=== PATIENT | female | born 1955 | race Caucasian/White ===

== ENCOUNTER → 2024-06-04 14:11 | Outpatient (CLI) | payer MEDICARE, SELFPAY ==
--- NOTE | 2024-06-04 14:13 | DI.CT.S_ITS ---
PROCEDURE: CT ABDOMEN PELVIS W CON INDICATIONS: ABD PAIN//TRENT/DISTENDED ABD/ASCITES TECHNIQUE: After the administration of intravenous contrast, axial sections acquired from the lung bases to the pubic symphysis. Coronal and sagittal reformats were performed. For radiation dose reduction, the following was used: automated exposure control, adjustment of mA and/or kV according to patient size. COMPARISON: None. FINDINGS: Image quality: Diagnostic. Lower Chest: There are incidentally noted bilateral lower lobe pulmonary emboli. There is no evidence of right heart strain. The pulmonary tree is incompletely evaluated. There is a mild right pleural effusion with associated right basilar atelectasis. ABDOMEN: Liver: No solid mass. Gallbladder: No radiopaque gallstones or wall thickening. Biliary ducts: No biliary dilation. Pancreas: No ductal dilation. Spleen: Size is within normal limits. Adrenal Glands: No adrenal nodules. Kidneys and Ureters: No hydronephrosis. No solid mass. No complex renal cystic lesion which requires follow up. Stomach and Bowel: Normal colonic caliber, without significant wall thickening. Peritoneum: There is moderately large ascites. There is clear evidence of malignancy in the pelvis. This may potentially represent bilateral cystic ovarian neoplasms. On the right, there is what appears to be a cystic mass with a significant solid component. On image 106 of series 2, the solid component measures the 6.3 x 7.7 cm, and the total potential ovarian lesion measures approximately 9.9 x 14.2 cm. There is also potential cystic ovarian neoplasm of the left ovary which has a significant solid component and a cystic component, and is seen on image 122 of series 2. In this location, the overall lesion measures approximately 8.4 x 8.7 cm with a solid component measuring approximately 7.1 x 6.6 cm. This lesion since on top of the uterus. Ventral Wall: No significant ventral hernia. Abdominal Nodes: No retroperitoneal or mesenteric adenopathy by size criteria. Vessels: Aorta and inferior vena cava are normal in size. PELVIS: Pelvic Organs: Unremarkable. Bladder: No bladder wall thickening, accounting for underdistention. Pelvic Nodes: No enlarged lymph nodes. Miscellaneous: No inguinal hernias are seen. Bones: No aggressive osseous abnormality. IMPRESSION: 1. 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 There is associated moderately large ascites. 2. Bilateral basilar pulmonary emboli are noted as incidental findings on this examination. 3. Small right pleural effusion with minimal right basilar atelectasis. Comment: The study was initially evaluated approximately 13 minutes after was completed. I immediately called the assistive technology trainer to see whether the patient had left the facility. The patient was still in the radiology department, and was undergoing ultrasound examination. The assistive technology trainer was instructed that the patient should be sent to the emergency department. I subsequently spoke to on 06/04/2024 at 1524 hours, discussing this patient, who has unsuspected pulmonary emboli and significant malignancy in the abdomen and pelvis. Dictated by: Patrick Gould M.D. on 06/04/2024 at 15:23 Approved by: Patrick Gould M.D. on 06/04/2024 at 15:35
--- NOTE | 2024-06-04 14:13 | DI.US.S_ITS ---
PROCEDURE: US ABDOMEN COMPLETE INDICATIONS: ABDOMINAL PAIN AND ASCITES TECHNIQUE: Real-time scanning was performed of the abdominal and retroperitoneal organs, with image documentation. COMPARISON: [facility], CT, CT ABDOMEN PELVIS W CON, 06/04/2024, 15:11. FINDINGS: Liver: Liver is normal in size and homogeneous in echotexture. Gallbladder: Normal. Biliary ducts: Intrahepatic bile ducts are non-dilated. Extrahepatic bile duct not well visualized. Pancreas: Visualized portions of the pancreas are sonographically normal. Spleen: Spleen is normal in size and homogeneous in echotexture. Kidneys: Kidneys are normal in size and echotexture. Right kidney measures 10.5 cm long; left kidney measures 9.7 cm long. No hydronephrosis or nephrolithiasis. No solid masses. Aorta: Visualized aorta is normal in caliber at less than 3 cm. Iliacs: Proximal common iliac arteries are normal in caliber at less than 2.5 cm. IVC: Intrahepatic inferior vena cava is patent. Miscellaneous: Large volume ascites. Partially visualized mixed cystic and solid mass of the right ovary is again seen. IMPRESSION: Large right mixed cystic and solid mass of the right ovary, consistent neoplasm. Large volume ascites, likely due to malignancy. Dictated by: Pankaj Spence M.D. on 06/04/2024 at 15:43 Approved by: Pankaj Spence M.D. on 06/04/2024 at 15:45
== END ==
PROVIDERS: PCP Family Medicine; Referring Provider Family Medicine; Visit Provider Family Medicine
DX: R10.84 Generalized abdominal pain (principal); R06.02 Shortness of breath; R06.09 Other forms of dyspnea; R14.0 Abdominal distension (gaseous); J90 Pleural effusion, not elsewhere classified; Z86.2 Personal history of diseases of the blood and blood-forming organs and certain disorders involving the immune mechanism; R18.8 Other ascites; R63.0 Anorexia; I26.99 Other pulmonary embolism without acute cor pulmonale; J98.11 Atelectasis; N83.8 Other noninflammatory disorders of ovary, fallopian tube and broad ligament
CPT/HCPCS: 74177; 76700; Q9967

== ENCOUNTER 2024-06-04 15:54 | Emergency (ER) | payer MEDICARE, SELFPAY ==
[2024-06-04] VITALS (16 sets, daily range): BP systolic 114–169; BP diastolic 75–102; PULSE 103–122; RESP 11–28; TEMP 36.4; O2SAT 93–95; BMI 32.3
--- NOTE | 2024-06-04 16:07 | EKG_ITS ---
[address] [address] Test Date: 2024-06-04 Pat Name: Cristy Zamora Department: Room: Gender: Female Certified Driver Examiner: ELI : [id number] Requested By: Order Number: [id number] Reading MD: Ward Solano Measurements Intervals [place] Rate: 120 P: 42 MD: 142 QRS: -3 QRSD: 72 T: 53 QT: 328 QTc: 463 Interpretive Statements Sinus tachycardia Electronically Signed On 06-05-2024 18:29:23 PDT by Ward Solano
[2024-06-04] MEDS: ASPIRIN 81 MG CHEW TAB 324 MG PO (16:38)
[2024-06-04 16:39] LABS: INR 1.1 (0.9-1.3); Prothrombin Time 12.1 SECONDS (9.4-12.5)
[2024-06-04 16:42] LABS: PTT Partial Thromboplastin Tim 30 SECONDS (25.1-36.5)
[2024-06-04 16:46] LABS: Add Manual Diff / Slide Review NO; Basophils Absolute Auto 0 /uL (0-100); Basophils Percent Auto 0.4 % (0-2); Eosinophils Absolute Auto 0 /uL (0-450); Eosinophils Percent Auto 0.4 % (2-4); Hemoglobin 13.5 g/dL (12.0-16.0); Lymphocytes Absolute Auto 1300 /uL (1100-4500); Lymphocytes Percent Auto 16.4 % (25-40); Mean Corpuscular HGB Conc 33.8 % (30-36); Mean Corpuscular Hemoglobin 30.5 PG (26-34); Mean Corpuscular Volume 90.3 fL (80-100); Monocytes Absolute Auto 600 /uL (0-900); Monocytes Percent Auto 7.9 % (3-14); Neutrophils Absolute Auto 5900 /uL (1500-7000); Neutrophils Percent Auto 74.9 % (50-75); Platelet Count 306 X10^3/uL (150-400); Red Blood Cell Count 4.43 X10^6/uL (4.0-5.2); Red Cell Distribution Width 12.8 % (11.6-14.8); White Blood Cell Count 7.8 X10^3/uL (4.5-11.0)
[2024-06-04 16:48] LABS: Alanine Aminotransferase 25 IU/L (<35); Albumin 3.6 g/dL (3.5-5.0); Albumin Globulin Ratio 1.1 (1.0-2.8); Alkaline Phosphatase 85 U/L (38-126); Aspartate Aminotransferase 42 IU/L (14-36); BUN Creatinine Ratio 9.1 (6-22); Bilirubin Total 0.4 mg/dL (0.2-1.3); Blood Urea Nitrogen 6 mg/dL (7-17); Calcium 8.7 mg/dL (8.4-10.2); Carbon Dioxide 24 mmol/L (22-32); Chloride 100 mmol/L (98-107); Creatine Kinase 39 U/L (30-135); Estimated Glomerular Filt Rate > 60 mL/min (>60); Globulin 3.4 g/dL (1.7-4.1); Glucose 114 mg/dL (80-110); HEMOLYSIS < 15 (0-50); Lipase 105 U/L (23-300); Magnesium 1.9 mg/dL (1.6-2.3); Potassium 3.7 mmol/L (3.4-5.1); Sodium 132 mmol/L (137-145)
[2024-06-04 16:59] LABS: NT-proBNP (BNP-Adult 18+) 167 pg/mL (<125); Troponin I < 0.012 ng/mL (0.01-0.034)
--- NOTE | 2024-06-04 17:05 | DI.CT.S_ITS ---
PROCEDURE: CT ANGIO CHEST PE PROTOCOL INDICATIONS: Pe TECHNIQUE: After the administration of intravenous contrast, 2 mm thick sections acquired from the pulmonary apices to the posterior costophrenic angles. 3-dimensional maximum intensity projection (MIP) coronal and sagittal reformats were then acquired through the thorax. For radiation dose reduction, the following was used: automated exposure control, adjustment of mA and/or kV according to patient size. COMPARISON: None. FINDINGS: Image quality: Diagnostic. Pulmonary arteries: Pulmonary arteries are prominent in size. Intraluminal filling defects are seen in right and left main pulmonary arteries extending to segmental and subsegmental branches of bilateral upper and lower lobe pulmonary arteries as well as right middle lobe pulmonary artery consistent with extensive bilateral pulmonary emboli. Lower Neck: No enlarged lymph nodes. Thyroid: No thyroid nodules which require sonographic follow up, per consensus guidelines. Axillae: No enlarged lymph nodes. Chest Wall: Unremarkable. Bones: No aggressive appearing bony lesions. Lungs and Pleura: There is small to moderate right-sided pleural effusion. Compressive atelectasis in posterior aspect of right lung is seen. Mild left basilar dependent atelectasis is seen. No pneumothorax. No suspicious pulmonary nodule or mass. Central and peripheral airway is patent. Heart: Heart size is borderline enlarged. No pericardial effusion. No signs of right heart strain at this time. Thoracic Vessels: No aortic aneurysm. Mediastinum and Anna: No enlarged lymph nodes. Esophagus: No wall thickening. Small hiatal hernia. Upper Abdomen: Please correlate with CT of abdomen and pelvis findings from the same day. IMPRESSION: 1. Extensive pulmonary emboli in distal right and left main pulmonary arteries extending to segmental and subsegmental branches of bilateral pulmonary arteries as above. Prominent size of main pulmonary artery which can be seen associated with pulmonary vascular hypertension. 2. Borderline cardiomegaly, no pericardial effusion. No definite evidence of right heart strain at this time. No gross mediastinal or hilar lymphadenopathy. 3. Small to moderate right pleural effusion with compressive atelectasis in posterior aspect of right lower lobe. Dependent atelectasis also seen in left lung base. No pneumothorax. 4. Small hiatal hernia. 5. Please correlate with CT of abdomen and pelvis report for additional findings. Dictated by: Chandrakant English M.D. on 06/04/2024 at 17:34 Approved by: Chandrakant English M.D. on 06/04/2024 at 17:38
[2024-06-04 17:50] LABS: Cancer Antigen 125 927 U/mL (0-35); Carcinoembryonic Antigen 0.9 ng/mL (0.1-3.0)
--- NOTE | 2024-06-04 17:54 | ED.SOB ---
HPI - SOB/Dyspnea <Lelia Diamond DO - Last Filed: 06/05/24 23:05> General Chief Complaint: Shortness of Breath/Dyspnea Stated Complaint: Had US&CT told there's a small blood clot in lung Time Seen by Provider: 06/04/24 17:05 Source: patient and family Mode of arrival: Ambulatory Limitations: no limitations History of Present Illness HPI Narrative: Patient is a healthy 69-year-old female presenting today from diagnostic imaging. She had outpatient CT abdomen and ultrasound done. She has been having some abdominal issues feeling a little bit more bloated does not really want aware her pants anymore has they do not fit quite right. She has also had increasing shortness of breath with exertion for the last number of weeks. No significant fever she sometimes has a nonproductive cough but no all the time. No nausea or vomiting. She was decrease in appetite she is having regular bowel movements no significant nausea or vomiting. CT abdomen found a very large ovarian mass with pulmonary emboli Related Data Allergies Allergy/AdvReac Type Severity Reaction Status Date / Time No Known Drug Allergies Allergy Verified 06/04/24 16:20 Patient History <Lelia Diamond DO - Last Filed: 06/05/24 23:05> Social History Smoking Status: Never smoker Smoking Status: Never smoker Alcohol type: wine Exam <Lelia Diamond DO - Last Filed: 06/05/24 23:05> Initial Vital Signs Initial Vital Signs: Vital Signs Temperature 97.6 F 06/04/24 16:10 Pulse Rate 119 H 06/04/24 16:10 Respiratory Rate 24 06/04/24 16:10 Blood Pressure 169/93 H 06/04/24 16:10 Pulse Oximetry 94 06/04/24 16:10 Oxygen Delivery Method Room Air 06/04/24 16:10 GENERAL: Alert very pleasant 69-year-old female and in no acute distress. HEENT: Head atraumatic,EOMI, pupils reactive, face symmetric, moist mucous membranes CARDIOVASCULAR: Tachycardic regular RESPIRATORY: Breath sounds equal bilaterally, no wheezes rales or rhonchi. ABDOMEN: Soft, no significant distention no pain EXTREMITIES: Normal range of motion, no clubbing or edema. Neurovascularly intact NEUROLOGICAL: Alert and oriented x4.Normal gait and speech. Cranial nerves II through XII grossly intact. SKIN: Warm, dry, no laceration, no petechiae, no rashes or lesions. <Ward Ritchie DO - Last Filed: 06/04/24 21:02> Initial Vital Signs Initial Vital Signs: Vital Signs Temperature 97.6 F 06/04/24 16:10 Pulse Rate 119 H 06/04/24 16:10 Respiratory Rate 24 06/04/24 16:10 Blood Pressure 169/93 H 06/04/24 16:10 Pulse Oximetry 94 06/04/24 16:10 Oxygen Delivery Method Room Air 06/04/24 16:10 Course <Lelia Diamond, DO - Last Filed: 06/05/24 23:05> Orders Ordered: Discontinued Medications Aspirin (Aspirin 81 Mg Chew Tab) 324 mg PO NOW ONE Stop: 06/04/24 16:28 Last Admin: 06/04/24 16:38 Dose: 324 mg Documented By: BENTLEY Heparin Sodium (Porcine) (Heparin 5,000 Unit/Ml Vial) 6,500 unit 80 unit/kg (6500 unit) IV NOW ONE Stop: 06/04/24 17:55 Last Admin: 06/04/24 18:16 Dose: 6,500 unit Documented By: BENTLEY Heparin Sodium/Dextrose (Heparin Drip) 25,000 unit in 500 mls @ 28.903 mls/hr IV CONT BRIAN; Protocol Last Admin: 06/04/24 18:17 Dose: 18 units/kg/hr, 28.903 mls/hr Documented By: BENTLEY Co-signed By: CTS Vital Signs Vital signs: Vital Signs - 8 hr 06/04/24 16:10 06/04/24 16:11 06/04/24 16:11 Temperature 97.6 F Pulse Rate 119 H 122 H Respiratory Rate 24 Blood Pressure 169/93 H 169/93 H Pulse Oximetry 94 95 Oxygen Delivery Method Room Air 06/04/24 16:30 06/04/24 16:30 06/04/24 17:00 Temperature Pulse Rate 113 H Respiratory Rate 14 Blood Pressure 147/82 H 114/80 Pulse Oximetry 95 Oxygen Delivery Method Room Air 06/04/24 17:00 06/04/24 17:26 06/04/24 17:26 Temperature Pulse Rate 108 H 107 H Respiratory Rate 13 16 Blood Pressure 149/80 H Pulse Oximetry 94 93 Oxygen Delivery Method Room Air 06/04/24 17:30 06/04/24 17:30 06/04/24 18:00 Temperature Pulse Rate 111 H 109 H Respiratory Rate 28 H 15 Blood Pressure 138/75 Pulse Oximetry 93 94 Oxygen Delivery Method 06/04/24 18:30 06/04/24 18:30 06/04/24 19:00 Temperature Pulse Rate 107 H 110 H Respiratory Rate 11 L 24 Blood Pressure 142/86 H Pulse Oximetry 94 95 Oxygen Delivery Method Room Air 06/04/24 19:00 06/04/24 19:30 06/04/24 19:30 Temperature Pulse Rate 105 H Respiratory Rate 27 H Blood Pressure 143/85 H 142/82 H Pulse Oximetry 94 Oxygen Delivery Method 06/04/24 20:00 06/04/24 20:00 06/04/24 20:30 Temperature Pulse Rate 105 H 103 H Respiratory Rate 14 20 Blood Pressure 150/79 H Pulse Oximetry 95 95 Oxygen Delivery Method 06/04/24 20:30 Temperature Pulse Rate Respiratory Rate Blood Pressure 137/78 Pulse Oximetry Oxygen Delivery Method <Ward Ritchie, - Last Filed: 06/04/24 21:02> Orders Ordered: Discontinued Medications Aspirin (Aspirin 81 Mg Chew Tab) 324 mg PO NOW ONE Stop: 06/04/24 16:28 Last Admin: 06/04/24 16:38 Dose: 324 mg Documented By: BENTLEY Heparin Sodium (Porcine) (Heparin 5,000 Unit/Ml Vial) 6,500 unit 80 unit/kg (6500 unit) IV NOW ONE Stop: 06/04/24 17:55 Last Admin: 06/04/24 18:16 Dose: 6,500 unit Documented By: BENTLEY Heparin Sodium/Dextrose (Heparin Drip) 25,000 unit in 500 mls @ 28.903 mls/hr IV CONT BRIAN; Protocol Last Admin: 06/04/24 18:17 Dose: 18 units/kg/hr, 28.903 mls/hr Documented By: BENTLEY Co-signed By: TOM Vital Signs Vital signs: Vital Signs - 8 hr 06/04/24 16:10 06/04/24 16:11 06/04/24 16:11 Temperature 97.6 F Pulse Rate 119 H 122 H Respiratory Rate 24 Blood Pressure 169/93 H 169/93 H Pulse Oximetry 94 95 Oxygen Delivery Method Room Air 06/04/24 16:30 06/04/24 16:30 06/04/24 17:00 Temperature Pulse Rate 113 H Respiratory Rate 14 Blood Pressure 147/82 H 114/80 Pulse Oximetry 95 Oxygen Delivery Method Room Air 06/04/24 17:00 06/04/24 17:26 06/04/24 17:26 Temperature Pulse Rate 108 H 107 H Respiratory Rate 13 16 Blood Pressure 149/80 H Pulse Oximetry 94 93 Oxygen Delivery Method Room Air 06/04/24 17:30 06/04/24 17:30 06/04/24 18:00 Temperature Pulse Rate 111 H 109 H Respiratory Rate 28 H 15 Blood Pressure 138/75 Pulse Oximetry 93 94 Oxygen Delivery Method 06/04/24 18:30 06/04/24 18:30 06/04/24 19:00 Temperature Pulse Rate 107 H 110 H Respiratory Rate 11 L 24 Blood Pressure 142/86 H Pulse Oximetry 94 95 Oxygen Delivery Method Room Air 06/04/24 19:00 06/04/24 19:30 06/04/24 19:30 Temperature Pulse Rate 105 H Respiratory Rate 27 H Blood Pressure 143/85 H 142/82 H Pulse Oximetry 94 Oxygen Delivery Method 06/04/24 20:00 06/04/24 20:00 06/04/24 20:30 Temperature Pulse Rate 105 H 103 H Respiratory Rate 14 20 Blood Pressure 150/79 H Pulse Oximetry 95 95 Oxygen Delivery Method 06/04/24 20:30 Temperature Pulse Rate Respiratory Rate Blood Pressure 137/78 Pulse Oximetry Oxygen Delivery Method MDM - SOB/Dyspnea <Lelia Diamond, DO - Last Filed: 06/05/24 23:05> Lab Data 06/04/24 16:10 06/04/24 16:10 Labs: Lab Results 06/04/24 06/04/24 Range/Units 16:10 23:18 WBC 7.8 (4.5-11.0) X10^3/uL RBC 4.43 (4.0-5.2) X10^6/uL Hgb 13.5 (12.0-16.0) g/dL Hct 40.0 (36-46) % MCV 90.3 (80-100) fL MCH 30.5 (26-34) PG MCHC 33.8 (30-36) % RDW 12.8 (11.6-14.8) % Plt Count 306 (150-400) X10^3/uL Neut % (Auto) 74.9 (50-75) % Lymph % (Auto) 16.4 L (25-40) % [place] % (Auto) 7.9 (3-14) % Eos % (Auto) 0.4 L (2-4) % Baso % (Auto) 0.4 (0-2) % Neut # (Auto) 5900 (1434-5962) /uL Lymph # (Auto) 1300 (7293-6907) /uL [place] # (Auto) 600 (0-900) /uL Eos # (Auto) 0 (0-450) /uL Baso # (Auto) 0 (0-100) /uL PT 12.1 (9.4-12.5) SECONDS INR 1.1 (0.9-1.3) APTT 30 107 H* D (25.1-36.5) SECONDS Sodium 132 L (137-145) mmol/L Potassium 3.7 (3.4-5.1) mmol/L Chloride 100 (98-107) mmol/L Carbon Dioxide 24 (22-32) mmol/L BUN 6 L (7-17) mg/dL Creatinine 0.66 (0.52-1.04) mg/dL Estimated GFR > 60 (>60) mL/min BUN/Creatinine Ratio 9.1 (6-22) Glucose 114 H (80-110) mg/dL Calcium 8.7 (8.4-10.2) mg/dL Magnesium 1.9 (1.6-2.3) mg/dL Total Bilirubin 0.4 (0.2-1.3) mg/dL AST 42 H (14-36) IU/L ALT 25 (<35) IU/L Alkaline Phosphatase 85 (38-126) U/L Total Creatine Kinase 39 (30-135) U/L Troponin I < 0.012 (0.01-0.034) ng/mL NT-Pro-B Natriuret Pep 167 H (<125) pg/mL Total Protein 7.0 (6.3-8.2) g/dL Albumin 3.6 (3.5-5.0) g/dL Globulin 3.4 (1.7-4.1) g/dL Albumin/Globulin Ratio 1.1 (1.0-2.8) Lipase 105 (23-300) U/L Carcinoembryonic Ag 0.9 (0.1-3.0) ng/mL CA 125 Antigen 927 H (0-35) U/mL Imaging Data CT scan - abdomen/pelvis: Radiologist's Impression: PROCEDURE: CT ABDOMEN PELVIS W CON INDICATIONS: ABD PAIN//TRENT/DISTENDED ABD/ASCITES TECHNIQUE: After the administration of intravenous contrast, axial sections acquired from the lung bases to the pubic symphysis. Coronal and sagittal reformats were performed. For radiation dose reduction, the following was used: automated exposure control, adjustment of mA and/or kV according to patient size. COMPARISON: None. FINDINGS: Image quality: Diagnostic. Lower Chest: There are incidentally noted bilateral lower lobe pulmonary emboli. There is no evidence of right heart strain. The pulmonary tree is incompletely evaluated. There is a mild right pleural effusion with associated right basilar atelectasis. ABDOMEN: Liver: No solid mass. Gallbladder: No radiopaque gallstones or wall thickening. Biliary ducts: No biliary dilation. Pancreas: No ductal dilation. Spleen: Size is within normal limits. Adrenal Glands: No adrenal nodules. Kidneys and Ureters: No hydronephrosis. No solid mass. No complex renal cystic lesion which requires follow up. Stomach and Bowel: Normal colonic caliber, without significant wall thickening. Peritoneum: There is moderately large ascites. There is clear evidence of malignancy in the pelvis. This may potentially represent bilateral cystic ovarian neoplasms. On the right, there is what appears to be a cystic mass with a significant solid component. On image 106 of series 2, the solid component measures the 6.3 x 7.7 cm, and the total potential ovarian lesion measures approximately 9.9 x 14.2 cm. There is also potential cystic ovarian neoplasm of the left ovary which has a significant solid component and a cystic component, and is seen on image 122 of series 2. In this location, the overall lesion measures approximately 8.4 x 8.7 cm with a solid component measuring approximately 7.1 x 6.6 cm. This lesion since on top of the uterus. Ventral Wall: No significant ventral hernia. Abdominal Nodes: No retroperitoneal or mesenteric adenopathy by size criteria. Vessels: Aorta and inferior vena cava are normal in size. PELVIS: Pelvic Organs: Unremarkable. Bladder: No bladder wall thickening, accounting for underdistention. Pelvic Nodes: No enlarged lymph nodes. Miscellaneous: No inguinal hernias are seen. Bones: No aggressive osseous abnormality. IMPRESSION: 1. 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 There is associated moderately large ascites. 2. Bilateral basilar pulmonary emboli are noted as incidental findings on this examination. 3. Small right pleural effusion with minimal right basilar atelectasis. Comment: The study was initially evaluated approximately 13 minutes after was completed. I immediately called the technical sales representatives to see whether the patient had left the facility. The patient was still in the radiology department, and was undergoing ultrasound examination. The technical sales representatives was instructed that the patient should be sent to the emergency department. I subsequently spoke to on 06/04/2024 at 1524 hours, discussing this patient, who has unsuspected pulmonary emboli and significant malignancy in the abdomen and pelvis. Dictated by: Patrick Gould M.D. on 06/04/2024 at 15:23 CT scan - chest: Radiologist's Impression: PROCEDURE: CT ANGIO CHEST PE PROTOCOL INDICATIONS: Pe TECHNIQUE: After the administration of intravenous contrast, 2 mm thick sections acquired from the pulmonary apices to the posterior costophrenic angles. 3-dimensional maximum intensity projection (MIP) coronal and sagittal reformats were then acquired through the thorax. For radiation dose reduction, the following was used: automated exposure control, adjustment of mA and/or kV according to patient size. COMPARISON: None. FINDINGS: Image quality: Diagnostic. Pulmonary arteries: Pulmonary arteries are prominent in size. Intraluminal filling defects are seen in right and left main pulmonary arteries extending to segmental and subsegmental branches of bilateral upper and lower lobe pulmonary arteries as well as right middle lobe pulmonary artery consistent with extensive bilateral pulmonary emboli. Lower Neck: No enlarged lymph nodes. Thyroid: No thyroid nodules which require sonographic follow up, per consensus guidelines. Axillae: No enlarged lymph nodes. Chest Wall: Unremarkable. Bones: No aggressive appearing bony lesions. Lungs and Pleura: There is small to moderate right-sided pleural effusion. Compressive atelectasis in posterior aspect of right lung is seen. Mild left basilar dependent atelectasis is seen. No pneumothorax. No suspicious pulmonary nodule or mass. Central and peripheral airway is patent. Heart: Heart size is borderline enlarged. No pericardial effusion. No signs of right heart strain at this time. Thoracic Vessels: No aortic aneurysm. Mediastinum and Anna: No enlarged lymph nodes. Esophagus: No wall thickening. Small hiatal hernia. Upper Abdomen: Please correlate with CT of abdomen and pelvis findings from the same day. IMPRESSION: 1. Extensive pulmonary emboli in distal right and left main pulmonary arteries extending to segmental and subsegmental branches of bilateral pulmonary arteries as above. Prominent size of main pulmonary artery which can be seen associated with pulmonary vascular hypertension. 2. Borderline cardiomegaly, no pericardial effusion. No definite evidence of right heart strain at this time. No gross mediastinal or hilar lymphadenopathy. 3. Small to moderate right pleural effusion with compressive atelectasis in posterior aspect of right lower lobe. Dependent atelectasis also seen in left lung base. No pneumothorax. 4. Small hiatal hernia. 5. Please correlate with CT of abdomen and pelvis report for additional findings. Dictated by: Chandrakant English M.D. on 06/04/2024 at 17:34 ECG Data Interpretation: Sinus tachycardia rate 120 no acute ischemia no priors to compare OH interval 142 QRS 72 QTC 463 MDM Narrative Medical decision making narrative: MDM CC: Abdominal pain shortness of Complicating co-morbidities: Health Data collected from: and patient Medical records reviewed: Imaging from today Differential considered: Ovarian cyst ovarian cancer colon cancer, pulmonary embolus Exam documented above, pertinent findings include: Patient does have distended abdomen but soft not significantly tender at all she is speaking in full sentences no chest pain no peripheral edema Lab Test results independently reviewed as above. Pertinent findings: CA 125 927 CEA 0.9 No leukocytosis no anemia Electrolytes within normal limits no NANCY troponin negative Independently reviewed EKG as above sinus tachycardia Imaging studies independently reviewed: CT shows large right mixed cystic and solid mass of the right ovary with large volume ascites CT chest shows extensive bilateral pulmonary artery and right and left main arteries no saddle emboli Consultations: [ ] Treatments: Heparin Discussion: Patient is a pleasant healthy 69-year-old female presenting to day with ongoing abdominal discomfort and increasing shortness of breath with exertion for a couple of weeks. She was found to have extensive bilateral pulmonary emboli and a large right ovarian cystic mass. CEA is elevated at 927 other blood work is overall reassuring. She is hemodynamically stable not requiring oxygen she was not hypotensive but persistently tachycardic without having any pain. I assume that her tachycardia secondary to her extensive pulmonary embolism. She was started on a heparin drip. Maybe candidate for ECOS due to extensive clot. Digned out to Dr. Erma Ritchie 1800: ?Patient was signed out to me by Dr. Abdul, patient is a 69-year-old female who presented for abdominal pain bloating ongoing persistent for several weeks as well as increasing shortness of breath with exertion.? Imaging performed here shows extensive pulmonary emboli in the right and left main pulmonary arteries, patient currently on heparin drip, in addition to this CT of the abdomen showing bilateral malignant cystic ovarian neoplasia he was with ascites which is new, patient will require transfer to higher level care for possible thrombectomy <Ward Ritchie, DO - Last Filed: 06/04/24 21:02> Lab Data Labs: Lab Results 06/04/24 06/04/24 Range/Units 16:10 23:18 WBC 7.8 (4.5-11.0) X10^3/uL RBC 4.43 (4.0-5.2) X10^6/uL Hgb 13.5 (12.0-16.0) g/dL Hct 40.0 (36-46) % MCV 90.3 (80-100) fL MCH 30.5 (26-34) PG MCHC 33.8 (30-36) % RDW 12.8 (11.6-14.8) % Plt Count 306 (150-400) X10^3/uL Neut % (Auto) 74.9 (50-75) % Lymph % (Auto) 16.4 L (25-40) % [place] % (Auto) 7.9 (3-14) % Eos % (Auto) 0.4 L (2-4) % Baso % (Auto) 0.4 (0-2) % Neut # (Auto) 5900 (7059-8257) /uL Lymph # (Auto) 1300 (3722-2357) /uL [place] # (Auto) 600 (0-900) /uL Eos # (Auto) 0 (0-450) /uL Baso # (Auto) 0 (0-100) /uL PT 12.1 (9.4-12.5) SECONDS INR 1.1 (0.9-1.3) APTT 30 107 H* D (25.1-36.5) SECONDS Sodium 132 L (137-145) mmol/L Potassium 3.7 (3.4-5.1) mmol/L Chloride 100 (98-107) mmol/L Carbon Dioxide 24 (22-32) mmol/L BUN 6 L (7-17) mg/dL Creatinine 0.66 (0.52-1.04) mg/dL Estimated GFR > 60 (>60) mL/min BUN/Creatinine Ratio 9.1 (6-22) Glucose 114 H (80-110) mg/dL Calcium 8.7 (8.4-10.2) mg/dL Magnesium 1.9 (1.6-2.3) mg/dL Total Bilirubin 0.4 (0.2-1.3) mg/dL AST 42 H (14-36) IU/L ALT 25 (<35) IU/L Alkaline Phosphatase 85 (38-126) U/L Total Creatine Kinase 39 (30-135) U/L Troponin I < 0.012 (0.01-0.034) ng/mL NT-Pro-B Natriuret Pep 167 H (<125) pg/mL Total Protein 7.0 (6.3-8.2) g/dL Albumin 3.6 (3.5-5.0) g/dL Globulin 3.4 (1.7-4.1) g/dL Albumin/Globulin Ratio 1.1 (1.0-2.8) Lipase 105 (23-300) U/L Carcinoembryonic Ag 0.9 (0.1-3.0) ng/mL CA 125 Antigen 927 H (0-35) U/mL MDM Narrative Medical decision making narrative: MDM CC: Abdominal pain shortness of Complicating co-morbidities: Health Data collected from: and patient Medical records reviewed: Imaging from today Differential considered: Ovarian cyst ovarian cancer colon cancer, pulmonary embolus Exam documented above, pertinent findings include: Patient does have distended abdomen but soft not significantly tender at all she is speaking in full sentences no chest pain no peripheral edema Lab Test results independently reviewed as above. Pertinent findings: CA 125 927 CEA 0.9 No leukocytosis no anemia Electrolytes within normal limits no NANCY troponin negative Independently reviewed EKG as above sinus tachycardia Imaging studies independently reviewed: CT shows large right mixed cystic and solid mass of the right ovary with large volume ascites CT chest shows extensive bilateral pulmonary artery and right and left main arteries no saddle emboli Consultations: [ ] Treatments: Heparin Discussion: Patient is a pleasant healthy 69-year-old female presenting to day with ongoing abdominal discomfort and increasing shortness of breath with exertion for a couple of weeks. She was found to have extensive bilateral pulmonary emboli and a large right ovarian cystic mass. CEA is elevated at 927 other blood work is overall reassuring. She is hemodynamically stable not requiring oxygen she was not hypotensive but persistently tachycardic without having any pain. I assume that her tachycardia secondary to her extensive pulmonary embolism. She was started on a heparin drip. Maybe candidate for ECOS due to extensive clot. Digned out to Dr. Erma Ritchie 1800: ?Patient was signed out to me by Dr. Abdul, patient is a 69-year-old female who presented for abdominal pain bloating ongoing persistent for several weeks as well as increasing shortness of breath with exertion.? Imaging performed here shows extensive pulmonary emboli in the right and left main pulmonary arteries, patient currently on heparin drip, in addition to this CT of the abdomen showing bilateral malignant cystic ovarian neoplasia he was with ascites which is new, patient will require transfer to higher level care for possible thrombectomy 2050: Had a discussion with Dr. Cedeno, at [facility] who accepts the admission Discharge Plan Departure Patient Disposition: [facility] Clinical Impression: Bilateral pulmonary embolism, Ovarian neoplasm Referrals: Mary Ann Dumont MD [Primary Care Provider] -
[2024-06-04] MEDS: HEPARIN 5,000 UNIT/ML VIAL 6500 UNIT IV (18:16)
[2024-06-04] MEDS: HEPARIN DRIP 25,000 UNIT/500 ML IV.SOLN 28.903 UNIT IV (18:17)
--- NOTE | 2024-06-04 19:53 | PC.NURSE ---
Patient given glycerin swabs and chap stick
--- NOTE | 2024-06-04 21:33 | PC.NURSE ---
hospital called and will call me back to get report
[2024-06-04 23:56] LABS: PTT Partial Thromboplastin Tim 107 SECONDS (25.1-36.5)
== END 2024-06-04 23:56 | disposition short-term general hospital (02) ==
PROVIDERS: Emergency Medicine; Emergency Provider Student in an Organized Health Care Education/Training Program; PCP Family Medicine
DX: I26.99 Other pulmonary embolism without acute cor pulmonale (principal); C56.3 Malignant neoplasm of bilateral ovaries; R00.0 Tachycardia, unspecified; R06.02 Shortness of breath; R05.9 Cough, unspecified; R10.84 Generalized abdominal pain; R06.09 Other forms of dyspnea; R14.0 Abdominal distension (gaseous); J90 Pleural effusion, not elsewhere classified; Z86.2 Personal history of diseases of the blood and blood-forming organs and certain disorders involving the immune mechanism; R18.8 Other ascites; R63.0 Anorexia; J98.11 Atelectasis; N83.8 Other noninflammatory disorders of ovary, fallopian tube and broad ligament
CPT/HCPCS: 36415; 71275; 74177; 76700; 80053; 82378; 82550; 83690; 83735; 83880; 84484; 85025; 85610; 85730; 86304; 93005; 96365; 96366; 99284; 99285; J1644; Q9967